=== PATIENT | female | born 1955 | race Caucasian/White ===

== ENCOUNTER → 2017-02-20 | Outpatient (CLI) | payer BC ==
[~2017-02-20] MED LIST: BROM0.07 OPR; IBUP-103 PO; MAGN400T6 PO; METH500T37 PO; MULT-506 PO; PRED1SUS3 OPR
== END | disposition home or self-care (01) ==
LOC: C.PAPS 09:23
PROVIDERS: ATTEND Obstetrics & Gynecology
DX: Z01.419 Encounter for gynecological examination (general) (routine) without abnormal findings (principal); Z87.42 Personal history of other diseases of the female genital tract; Z78.0 Asymptomatic menopausal state

== ENCOUNTER → 2017-03-20 | Outpatient (CLI) | payer BC ==
--- NOTE | 2017-03-20 15:54 | MAMMOGRAPHY REPORT ---
BILATERAL DIGITAL SCREENING MAMMOGRAM WITH CAD: 03/20/2017 CLINICAL HISTORY: Patient presents for routine screening. S/P bilateral augmentation. TECHNIQUE: Current study was also evaluated with a Computer Aided Detection (CAD) system. Bilatera l CC and MLO views including implant displaced views were obtained. COMPARISON: Comparison is made to exams dated: 07/20/2013 mammogram, 12/12/2009 mammogram - [facility], and 10/08/2007. BREAST COMPOSITION: There are scattered areas of fibroglandular density in both breasts. FINDINGS: No suspicious masses, calcifications, or areas of architectural distortion are noted in e ither breast. There has been no significant interval change compared to prior exams. Bilateral subp ectoral silicone implants are stable in appearance. IMPRESSION: ACR BI-RADS CATEGORY 2: BENIGN There is no mammographic evidence of malignancy. A 1 year screening mammogram is recommended. The p atient will receive written notification of the results. Approximately 10% of breast cancers are not detected with mammography. A negative mammographic repor t should not delay biopsy if a clinically suggestive mass is present. Kelley Islas M.D. ah/:03/20/2017 15:20:59 Pail Tester: Sheyla Baer RT(R)(M), [facility] letter sent: Normal 1/2 BI-RADS Code: ACR BI-RADS Category 2: Benign
== END | disposition home or self-care (01) ==
LOC: C.MAMM 12:48
PROVIDERS: ATTEND Obstetrics & Gynecology
DX: Z12.31 Encounter for screening mammogram for malignant neoplasm of breast (principal); Z98.82 Breast implant status

== ENCOUNTER 2017-06-17 14:20 | Emergency (ER) | payer BC ==
[~2017-06-17] VITALS: Ht 170.2 cm; Wt 62.9 kg
[~2017-06-17 14:20] MED LIST changes: -IBUP-103 PO
[2017-06-17 14:24] VITALS: TEMP 36.4; Ht 170.2 cm; Wt 62.9 kg
[2017-06-17] MEDS ORDERED: CYCLOBENZAPRINE HCL 5 MG TAB PO STA (14:38)
--- NOTE | 2017-06-17 15:04 | DIAGNOSTIC IMAGING REPORT ---
CERVICAL SPINE 3 VIEWS CLINICAL HISTORY: Neck pain. FINDINGS: AP, lateral, and odontoid views of the cervical spine are correlated with MRI of the cervical spine dated 09/16/2014. The skeletal structures are osteopenic. There is no radiographic evidence of fracture or malalignment. Vertebral body height and alignment are maintained throughout the cervical spine. There is straightening of the cervical lordosis. There is complete fusion of the C5 and C6 vertebral bodies. The spinolaminar line is maintained. The odontoid process and lateral masses appear intact on the open-mouth view. Productive degenerative change is seen at the atlantodental articulation. Small anterior osteophytes are seen throughout. Moderate disc space narrowing is seen at C3-C4 and C4-C5. Mild disc space narrowing seen at C6-C7. A posterior disc osteophyte complex at C4-C5 may contribute to acquired compromise of the central canal. The prevertebral soft tissues are within normal limits. Partially imaged apical lung parenchyma appears clear. IMPRESSION: 1. No acute bony abnormality is seen involving the cervical spine. 2. Osteopenia and degenerative change as above. 3. There is complete bony fusion of C5 and C6, similar to prior studies. Electronically signed by: Sixto Botello M.D. 06/17/2017 3:02 PM Dictated Date/Time: 06/17/2017 3:00 PM
[2017-06-17 15:37] VITALS: BP 106/72; PULSE 67; O2SAT 100
[2017-06-17] MEDS ORDERED: IBUP-103 PO (15:37)
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
== END 2017-06-17 15:37 | disposition home or self-care (01) ==
LOC: C.EDB 14:21 → C.EDD 15:37
DX: M54.2 Cervicalgia (principal); M62.838 Other muscle spasm; Z98.1 Arthrodesis status; R20.0 Anesthesia of skin; R20.2 Paresthesia of skin

== ENCOUNTER → 2018-01-09 | Outpatient (CLI) | payer BC, OTHER ==
[~2018-01-09] MED LIST changes: -BROM0.07 OPR; +IBUP-103 PO; -MAGN400T6 PO; -MULT-506 PO; -PRED1SUS3 OPR
--- NOTE | 2018-01-09 09:13 | DIAGNOSTIC IMAGING REPORT ---
R SHOULDER MIN 2 VIEWS CLINICAL HISTORY: RIGHT SHOULDER PAIN pain COMPARISON: None. DISCUSSION: The bones and joint spaces appear intact. There is no evidence of fracture, dislocation or bony disease. There is no evidence for soft tissue swelling. Mild degenerative change right acromioclavicular joint IMPRESSION: Mild degenerative change right acromioclavicular joint. Otherwise negative study. The above report was generated using voice recognition software. It may contain grammatical, syntax or spelling errors. Electronically signed by: Sathish Mcgraw M.D. 01/09/2018 9:11 AM Dictated Date/Time: 01/09/2018 9:11 AM
== END | disposition home or self-care (01) ==
LOC: C.RDSM 08:00
PROVIDERS: ATTEND Physician Assistant
DX: M25.511 Pain in right shoulder (principal)

== ENCOUNTER → 2018-02-05 | Outpatient (CLI) | payer OTHER ==
--- NOTE | 2018-02-05 15:40 | DIAGNOSTIC IMAGING REPORT ---
R HAND MIN 3 VIEWS CLINICAL HISTORY: RIGHT HAND PAIN COMPARISON: None. DISCUSSION: No acute fractures are visualized. There are moderate arthritic changes within the wrist with narrowing of the scapholunate cuneiform articulation and first carpometacarpal joint. There is a corticated density adjacent to the ulnar styloid which is felt to be old. There are no erosive changes. The bones are mildly osteopenic. There are osteoarthritic changes at the level of the second and third metacarpal phalangeal joints. IMPRESSION: 1. Mild osteopenia 2. Arthritic changes most pronounced within the wrist, and second and third metacarpal phalangeal joints. 3. No acute fractures Electronically signed by: Ace Ojeda M.D. 02/05/2018 3:39 PM Dictated Date/Time: 02/05/2018 3:37 PM
== END | disposition home or self-care (01) ==
LOC: C.RDSM 15:27
PROVIDERS: ATTEND Physician Assistant
DX: R52 Pain, unspecified (principal)

== ENCOUNTER → 2018-06-12 | Outpatient (CLI) | payer OTHER ==
[~2018-06-12] MED LIST changes: +METH-445 PO; -METH500T37 PO
--- NOTE | 2018-06-12 15:08 | DIAGNOSTIC IMAGING REPORT ---
CERVICAL WITHOUT CONTRAST CLINICAL HISTORY: 63 years-old Female presenting with NECK PAIN, CERVICAL RADICULOPATHY. TECHNIQUE: Multisequence, multiplanar MR imaging of the cervical spine was performed without the use of intravenous contrast. IV contrast: None. COMPARISON: 09/16/2014, radiograph from 06/17/2017 and additional priors dating back to 2004. FINDINGS: Localizer images: Unremarkable. Slight straightening of normal cervical lordosis. 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 Remaining vertebral bodies demonstrate normal height, alignment, and bone marrow signal intensity. Diffuse intervertebral disc desiccation without significant height loss. Multilevel degenerative changes further detailed below: C2-3: No significant spinal canal or neural foraminal narrowing. C3-4: Minimal disc osteophyte complex without significant neural foraminal or spinal canal narrowing. C4-5: Disc osteophyte complex/uncovertebral hypertrophy results in mild effacement of the ventral thecal sac without deformation of the spinal cord. Mild bilateral neural foraminal narrowing. C5-6: No significant neural foraminal or spinal canal narrowing. C6-7: Uncovertebral hypertrophy on the right results in right neural foraminal narrowing. No significant spinal canal narrowing. C7-T1: No significant spinal canal or neural foraminal narrowing. Cervical spinal cord normal in morphology and signal intensity. Paraspinal musculature within normal limits. No gross evidence of an epidural collection. IMPRESSION: 1. Multilevel degenerative changes with segmentation normally at C5-6. Mild neural foraminal narrowing bilaterally at C4-5 and on the right at C6-7. No evidence of spinal cord impingement. Findings are similar prior exam. Electronically signed by: Bill Harmon M.D. 06/12/2018 3:07 PM Dictated Date/Time: 06/12/2018 2:58 PM
== END | disposition home or self-care (01) ==
LOC: C.MRI 13:34
PROVIDERS: ATTEND Orthopaedic Surgery
DX: M54.12 Radiculopathy, cervical region (principal)

== ENCOUNTER 2020-05-22 10:38 | Inpatient (IN) ==
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
[~2020-05-22 10:38] MED LIST changes: +ACETAMINOPHEN 500 MG TAB PO SCH; +BUPIVACAINE 0.5 % 5 MG/1 ML PF 10ML VIAL ONE; +CEFAZOLIN 1000MG 1,000 MG/7.5 ML SYR IV SCH; +CeleBREX 200 MG CAP PO SCH; +FAMOTIDINE 20 MG TAB PO SCH; +GABAPENTIN 600 MG DOSE PO SCH; -IBUP-103 PO; +LR 15ML/HR IV SCH; -METH-445 PO; +METOCLOPRAMIDE HCL 10 MG TABLET PO SCH; +ROPIVACAINE 0.5% 5 MG/ML 30 ML VIAL ONE; +dexAMETHasone 4 MG TAB PO SCH
[2020-05-22] MEDS ORDERED: fentaNYL citrate 100 MCG/2 ML VIAL ONE (11:51)
[2020-05-22] MEDS ORDERED: MIDAZOLAM HCL 1 MG/ML 2ML VIAL ONE (11:51)
[2020-05-22] MEDS ORDERED: GLYCOPYRROLATE 0.2 MG/ML VIAL ONE ×2 (11:51→16:15)
[2020-05-22] MEDS ORDERED: NEOSTIGMINE METHYLSULFATE 5 MG/5 ML SYR ONE (11:51)
[2020-05-22] MEDS ORDERED: DEXAMETHASONE SOD INJ 4 MG/ML VIAL ONE (11:51)
[2020-05-22] MEDS ORDERED: ROCURONIUM BROMIDE 10 MG/ML 5 ML VIAL IV ONE (11:51)
[2020-05-22] MEDS ORDERED: ONDANSETRON INJ 2 MG/ML 2 ML VIAL ONE (11:51)
[2020-05-22] MEDS ORDERED: PROPOFOL IV EMULSION 10 MG/ML 20 ML VIAL IV ONE (11:51)
[2020-05-22] MEDS ORDERED: ATROPINE SULFATE 0.1 MG/ML 10ML SYR IV PRN (12:39)
[2020-05-22] MEDS ORDERED: ONDANSETRON INJ 2 MG/ML 2 ML VIAL IV PRN (12:39)
[2020-05-22] MEDS ORDERED: HYDROmorphone INJ 1 MG/ML SYRINGE IV PRN (12:39)
[2020-05-22] MEDS ORDERED: KETOROLAC 30 MG/ML VIAL IV PRN (12:39)
--- NOTE | 2020-05-22 13:54 | History & Physical Bridge Note ---
Date of Service May 22, 2020 History & Physical Bridge Note I have examined the patient, reviewed the History & Physical and in the interval since the performance of the History & Physical I have noted the following changes of clinical significance: no changes noted
[2020-05-22] MEDS ORDERED: BACITRACIN INJ 50,000 UNIT VIAL ONE (13:59)
[2020-05-22] MEDS ORDERED: ePHEDrine sulfate 50 MG/ML SYR ONE (14:54)
[2020-05-22] MEDS ORDERED: LIDOCAINE HCL 2% 2 ML VIAL/AMP(20MG/ML) INFIL ONE (14:59)
[2020-05-22] MEDS ORDERED: LARYING-O-JET KIT (LTA) ONE (14:59)
--- NOTE | 2020-05-22 15:24 | Electrocardiogram Report ---
Test Reason : Blood Pressure : / mmHG Vent. Rate : 064 BPM Atrial Rate : 064 BPM P-R Int : 144 ms QRS Dur : 082 ms QT Int : 424 ms P-R-T Axes : 079 091 086 degrees QTc Int : 437 ms Normal sinus rhythm Rightward axis Septal infarct (cited on or before 16-FEB-2019) Abnormal ECG When compared with ECG of 16-FEB-2019 15:06, Premature ventricular complexes are no longer Present Confirmed by Alberto Crow ([id number]) on 05/22/2020 3:23:40 PM Referred By: Yang Knox Confirmed By:Alberto Crow
[2020-05-22] MEDS ORDERED: PHENYLEPHRINE 100MCG/ML 5ML SYR ONE (15:37)
--- NOTE | 2020-05-22 17:08 | Operative Report ---
Post Operative Report Pre & Post Diagnosis Operation Date: 05/22/20 12:30 Pre-Op Diagnosis: Right shoulder glenohumeral osteoarthritis, rotator cuff tear arthropathy, failed rotator cuff repair, prior long head biceps rupture or tenotomy Post-Op Diagnosis: Same with grade 4 osteoarthritis glenohumeral joint and retained hardware (suture anchors ) I identified the patient and participated in the time-out.: Yes Procedure Operation Date: 05/22/20 12:30 Actual Procedures p Right Reversed Total Shoulder Arthroplasty(Right), removal hardware(suture anchors and suture material)- Yang Knox MD Surgeon Yang Knox MD Gas Appliance Installer YANELIS Flores Estimated Blood Loss 75 Findings Consistent with Post-Op Diagnosis Specimens Humeral head and suture anchors Drains 2 Hemovac Anesthesia Type General Regional Complications none Disposition Accompanied Patient To Recovery: No Disposition: Recovery Room Indications 65-year-old female with chronic right shoulder pain status post failed rotator cuff repair with progressive glenohumeral osteoarthritis superior migration humerus and rotator cuff arthropathy. Patient is now on chronic narcotics due to severe pain. Radiographs demonstrate previous decompression procedure now with proximal migration of the humerus narrowing of the superior glenohumeral joint space. Description of Procedure The patient was taken to the operating room and anesthetized under regional block and general anesthetic. The patient was positioned on the operating table in a 30 beachchair position with a towel roll under the medial border of the right scapula. The arm was draped free to be able to manipulate the shoulder as needed. The right upper extremity was prepped and draped in usual sterile fashion. Exam demonstrated previous scars well-healed from rotator cuff surgery. Limited range of motion and glenohumeral crepitation. Forward elevation 120 degrees, abduction 80 degrees, external rotation 35 degrees, internal rotation 40 degrees. An anterior deltopectoral approach was performed. A longitudinal incision was made in the deltopectoral interval. The skin was incised sharply. Subcutaneous flaps were elevated off the fascia. The cephalic vein was dissected out and retracted lateral with the deltoid. The clavipectoral fascia was divided at the lateral margin of the conjoined tendon and extended up to the CA ligament. The following findings were noted: The subscapularis tendon was intact. There was chronic subacromial bursitis with joint fluid extending into the subacromial space via a large rotator cuff tear of the supraspinatus. Some of the infraspinatus was still intact as well as teres minor. Biceps tendon was ruptured and retracted and scarred tendon sheath was in the groove.. The upper centimeter of the pectoralis was released for inferior exposure. The scar biceps tendon sheath was resected. The subscapularis tendon was taken down off the lesser tuberosity using a subperiosteal dissection. A #1 Vicryl traction suture was placed into the free end of the subscapularis tendon and capsule. The subscapular muscle fibers were split longitudinally at the level of the circumflex vessels. The circumflex vessels were identified and tied off with silk ties and divided laterally. A Kitner elevator was used to free up the inferior fibers of the subscapularis off of the capsule. The axillary nerve was identified with a tug test and protected with a blunt Leticia retractor between the nerve and the capsule. The subscapularis tendon was then taken down off of the lesser tuberosity subperiosteally and subperiosteal dissection was performed along the neck of the humerus as the arm is gradually externally rotated expos ing the humeral head. The humeral head findings demonstrated small inferior humeral osteophytes from anterior to posterior. The superior humeral head was down to grade 4 osteoarthritis with flattening of the humeral head.. retractors were readjusted and the inferior osteophytes were all resected using a small rongeur. A Cortez elevator was used to assist in releasing the capsule of the neck of the humerus. The capsule was divided with Poon scissors down to the glenoid released off the anterior glenoid and the rotator interval was released to meet the capsular release and a 360 release of the subscapularis was accomplished. A Fukuda retractor was placed into the joint retracting the humeral head posterior. Glenoid findings demonstrated the superior 1/3-1/2 of the glenoid was exposed eburnated bone with moderately arthritic intact articular cartilage in the inferior aspect of the glenoid.. The labrum was resected. an anterior-inferior and posterior inferior capsular release were performed with electrocautery and a Cortez elevator on bone with the axillary nerve protected inferiorly by the retractor. Attention was then taken to the humeral preparation. The cutting guide was placed into the humeral head. It was positioned at 20 of retroversion. Oscillating saw was used to resect the humeral head giving the cut above the level of the posterior rotator cuff insertion site. The humerus was then prepared for the stem. First had to remove the suture anchors to allow instrumentation in the canal. There were Helicoil anchors old suture material and footprint type anchors which were all peek material. The helicoil anchors were fragile and removed with a rongeur piecemeal. The footprint anchors were removed and all suture material in the bone was removed. The infraspinatus was left intact. The attachment was not compromised. I used the ascend flex stem from [email or web address]. The sizing broaches were used followed by trial broaches up to a size 4B long which had the ap propriate fit and fill. The appropriate sized cut protector was placed. The humerus was then retracted posterior to the glenoid. The glenoid was sized for a 25 baseplate standard post. The guide for the baseplate was positioned in a 10 inferior tilt and the central drill hole was made. The reamer for the 25 baseplate was used. The central drill was widened for the peg. The 25 baseplate was impacted into position. The base plate was transfixed with superior and inferior locking screws and anterior and posterior compression screws with stable fixation. The fan reamer was used for the 36 millimeter glenoid sphere. After irrigation the 36 standard centered glenoid sphere was impacted onto the baseplate and the screw was tightened. Attention was taken back to the humerus. The cut protector was removed and the plus or high offset humeral tray trial was assembled to the trial stem rotated appropriately to get bony coverage and then screwed in position. A trial reduction was performed. A +6,36 mm trial insert demonstrated good stability and no shuck. The trials were removed. 3 drill holes are made into the harder bone in the bicipital groove area and 3 #5 FiberWire sutures were placed transosseously. The canal was irrigated with antibiotic solution with bacitracin. The final component was assembled. The final component was 4B long PTC ascend flex stem with high off set reversed tray +0 and 36+6 reversed polyethylene insert. This was then impacted into the humerus with a tight press-fit. It was reduced to the glenoid sphere. Stability was verified. Subscapularis was repaired with the #5 FiberWire sutures using Bebo-Michael suture technique. Lateral row soft tissue repair was performed with #2 FiberWire [id number] sutures. The pectoralis was repaired with #2 FiberWire [id number] sutures. The arm was taken through a range of motion which demonstrated 140 degrees forward elevation 100 degrees abduction 50 degrees external rotation 70 degrees internal rotation. The implant was stable through the range of motion tested. The wound was copiously irrigated. 2 Hemovac drains were placed. The deltopectoral interval was closed with crqgnw-zq-venbo #1 Vicryl sutures. The subcutaneous tissues were closed with 2-0 Vicryl sutures. The skin was closed with allen. Sterile dressings were applied and a shoulder immobilizer. YANELIS Flores my physician entry level assistant manager assisted in the procedure to the entire procedure including patient positioning arm positioning prepping and draping soft tissue retraction instrument management suture management and performed the subcutaneous and skin closure and will participate in the postoperative care of the patient. I attest to the content of the Intraoperative Record and any orders documented therein. Any exceptions are noted below.
--- NOTE | 2020-05-22 17:46 | XRay Report ---
RIGHT SHOULDER 2 VIEWS CLINICAL HISTORY: Postoperative examination. FINDINGS: 2 portable views of the right shoulder are obtained. The skeletal structures are osteopenic . A right shoulder arthroplasty is in near-anatomic alignment. No acute fracture is seen. Productive change is noted at the acromioclavicular joint. Skin clips, a surgical drain, soft tissue swelling, a nd subcutaneous gas are expected postoperative findings. The visualized right lung parenchyma appears clear. IMPRESSION: Expected postoperative findings status post right shoulder arthroplasty. No acute fractur e is seen. Electronically signed by: Sixto Botello M.D. 05/22/2020 5:44 PM
[2020-05-22] MEDS ORDERED: SODIUM CHLORIDE 0.9% 1000ML 1,000 ML IV SCH (18:20)
[2020-05-22] MEDS ORDERED: MAGNESIUM HYDROXIDE SUSP 30 ML UDC PO PRN (18:20)
[2020-05-22] MEDS ORDERED: bisacodyL 10 MG SUPP PR PRN (18:20)
[2020-05-22] MEDS ORDERED: NALOXONE HCL 0.4 MG/1 ML VIAL/CARP IV PRN (18:20)
[2020-05-22] MEDS ORDERED: HYDROmorphone INJ 0.5 MG/0.5 ML SYR IV PRN (18:20)
[2020-05-22] MEDS ORDERED: MEDICAL MARIJUANA INH PRN (18:23)
[2020-05-22] MEDS: OXYCODONE HCL IR 5 MG TAB (IMMEDIATE RELEASE) PO PRN (18:36)
--- NOTE | 2020-05-22 18:36 | Anesthesiology Progress Note ---
Date of Service May 22, 2020 Anesthesia Post Procedure Vital Signs Vital Signs: Temp Pulse Pulse Resp BP Pulse Ox 05/22/20 18:29 36.7 C 66 17 112/68 94 05/22/20 18:00 36.6 C 80 16 114/73 96 05/22/20 17:45 73 16 123/68 94 05/22/20 17:30 36.3 C L 73 15 119/70 95 05/22/20 17:20 81 16 117/70 96 05/22/20 17:10 82 15 123/74 99 05/22/20 17:02 36.3 C L 84 16 118/68 100 05/22/20 12:15 36.9 C 58 L 18 132/73 98 05/22/20 11:24 37 C 64 20 121/74 96 Pain Intensity Right Arm: Pain Intensity: 6 Transfer of Care Handoff Completed per policy Notes Mental Status: alert / awake / arousable and participated in evaluation Patient Amnestic to Procedure: Yes Nausea / Vomiting: adequately controlled Pain: adequately controlled Airway Patency, RR, SpO2: stable & adequate BP & HR: stable & adequate Hydration State: stable & adequate Anesthetic Complications: no major complications apparent and Pt Satisfied with anesthetic care Notes: Block is functioning well.
[2020-05-22] MEDS: CEFAZOLIN 1000MG 1,000 MG/7.5 ML SYR IV SCH (21:57)
[2020-05-22] MEDS: ACETAMINOPHEN 500 MG TAB PO SCH (21:58)
[2020-05-22] MEDS: DOCUSATE SODIUM 100 MG CAP PO SCH (21:58)
[2020-05-22] MEDS: SENNA 8.6 MG TAB PO SCH (21:58)
[2020-05-23] MEDS: OXYCODONE HCL IR 5 MG TAB (IMMEDIATE RELEASE) PO PRN ×5 (02:11→23:54)
[2020-05-23] MEDS: CEFAZOLIN 1000MG 1,000 MG/7.5 ML SYR IV SCH (06:31)
[2020-05-23] MEDS: ACETAMINOPHEN 500 MG TAB PO SCH ×3 (06:31→21:00)
[2020-05-23 07:15] LABS: Basophils # (auto) 0.01 K/uL (0-0.2); Basophils % (auto) 0.1 %; Hematocrit (blood only) 33.9 % (37-47); Hemoglobin 11.3 g/dL (12.0-16.0); Immature Granulocytes # (auto) 0.02 K/uL (0.00-0.02); Immature Granulocytes % (auto) 0.2 %; Lymphocytes # (auto) 1.63 K/uL (1.2-3.4); Lymphocytes % (auto) 14.7 %; Mean Corpuscular Hemoglobin 30.5 pg (25-34); Mean Corpuscular Hgb Conc 33.3 g/dL (32-36); Mean Corpuscular Volume 91.4 fL (80-100); Mean Platelet Volume 9.8 fL (7.4-10.4); Monocytes # (auto) 0.85 K/uL (0.11-0.59); Monocytes % (auto) 7.7 %; Neutrophils # (auto) 8.59 K/uL (1.4-6.5); Neutrophils % (auto) 77.3 %; Platelet Count 247 K/uL (130-400); RDW Coefficient of Variation 14.1 % (11.5-14.5); RDW Standard Deviation 46.8 fL (36.4-46.3); Red Blood Count 3.71 M/uL (4.2-5.4)
[2020-05-23 07:43] LABS: BUN Creatinine Ratio 10.2 (10-20); Est GFR (African American) 67.7; Est GFR (Non-African American) 58.4; Potassium 3.6 mmol/L (3.5-5.1)
--- NOTE | 2020-05-23 08:10 | Anesthesiology Progress Note ---
Date of Service May 23, 2020 Anesthesia Post Procedure Vital Signs Vital Signs: Temp Pulse Pulse Resp BP Pulse Ox 05/23/20 07:24 36.9 C 61 18 99/58 L 98 05/23/20 02:51 36.9 C 51 L 16 109/65 97 05/22/20 23:18 36.3 C L 61 16 97/56 L 96 05/22/20 22:08 36.8 C 68 16 112/64 95 05/22/20 20:00 36.4 C L 71 16 112/64 96 05/22/20 19:09 36.8 C 76 16 106/66 94 05/22/20 18:29 36.7 C 66 17 112/68 94 05/22/20 18:00 36.6 C 80 16 114/73 96 05/22/20 17:45 73 16 123/68 94 05/22/20 17:30 36.3 C L 73 15 119/70 95 05/22/20 17:20 81 16 117/70 96 05/22/20 17:10 82 15 123/74 99 05/22/20 17:02 36.3 C L 84 16 118/68 100 05/22/20 12:15 36.9 C 58 L 18 132/73 98 05/22/20 11:24 37 C 64 20 121/74 96 Pain Intensity Right Arm: Pain Intensity: 6 Notes Mental Status: alert / awake / arousable and participated in evaluation Nausea / Vomiting: adequately controlled Pain: adequately controlled Airway Patency, RR, SpO2: stable & adequate BP & HR: stable & adequate Hydration State: stable & adequate Anesthetic Complications: no major complications apparent
--- NOTE | 2020-05-23 08:23 | Orthopedic Progress Note ---
Date of Service May 23, 2020 Assessment & Plan (1) Right rotator cuff tear arthropathy: POD #1, Right [place] TSA PT/ OT DVT proph- ASA D/C planning- Home w HEP. Will add Am and PM dosing for medical marijuana. Admission and Anticipated Discharge Date Admission Date: May 22, 2020 Subjective POD#1 Pain is main issue, uses medical marijuana and explained more in detail her dosing. Oxycodone, dilaudid and tylenol on board. Denies SOB, CP, N/V. Physical Exam Physical Exam: Right shoulder dressings c/d/i, no drainage. Fingers/ wrist mobile. Sling in tact. A&Ox3. Results & Data ([facility]) Vital Signs (Past 12 Hours) Vital Signs Temp Pulse Resp BP Pulse Ox 05/23/20 07:24 36.9 C 61 18 99/58 L 98 05/23/20 02:51 36.9 C 51 L 16 109/65 97 05/22/20 23:18 36.3 C L 61 16 97/56 L 96 05/22/20 22:08 36.8 C 68 16 112/64 95
[2020-05-23] MEDS: ASPIRIN 81 MG ECTAB PO SCH (08:46)
[2020-05-23] MEDS: MAGNESIUM OXIDE 400 MG TAB PO SCH (08:47)
[2020-05-23] MEDS: ESCITALOPRAM OXALATE 10 MG TAB PO SCH (08:47)
[2020-05-23] MEDS: CYANOCOBALAMIN 500 MCG TABLET (VITAMIN B-12) PO SCH (08:47)
[2020-05-23] MEDS: CHOLECALCIFEROL 1,000 UNITS 25 MCG TAB PO SCH (08:47)
[2020-05-23] MEDS: MULTIVITAMIN TAB PO SCH (08:47)
[2020-05-23] MEDS: DOCUSATE SODIUM 100 MG CAP PO SCH ×2 (08:47→20:16)
[2020-05-23] MEDS ORDERED: NON-FORMULARY MEDICATION (Multivitamin 1 CAP) PO SCH (09:00)
[2020-05-23] MEDS ORDERED: LACTATED RINGER'S 1,000 ML IV SCH (09:45)
[2020-05-23] MEDS ORDERED: ONDANSETRON INJ 2 MG/ML 2 ML VIAL IV PRN (09:48)
--- NOTE | 2020-05-23 12:31 | Hospitalist Consultation ---
Date of Consultation May 23, 2020 Assessment & Plan (1) Right rotator cuff tear arthropathy: S/p right reversed total shoulder arthroplasty 05/22 Monitor for acute blood loss DVT proph, pain control per primary (2) Fibromyalgia: Patient takes medical marijuana for this, would hold for now while receiving narcotics for pain control (3) Nausea: Secondary to narcotics and pain. Will give Zofran 4mg q4h prn (4) Hypotension: Mild but with lightheadedness, likely secondary to dilaudid administration Gave LR @ 250 mls x 1L Pressures are wnl this afternoon Thank you for involving us in the care of this patient. Medicine will sign off at this time. Supervising Physician Co-Signing Physician Notes I supervised Iliana Wilde NP on this patient's care. I examined the patient today independently of her. I discussed the plan of care with her with the plan being as written in her note except for any following changes/exceptions: None. In significant pain this afternoon when seen. In the right shoulder and going down the elbow. Discussed that it's not a big deal to use pain meds this closely after surgery. History of Present Illness Attending Physician: Yang Knox MD History of Present Illness Ms. Nicholas is a bit lightheaded after receiving dilaudid. Her blood pressures have been running a bit hypotensive this morning. She is also painful in her shoulder and nauseas. Allergies Allergy/AdvReac Type Severity Reaction Status Date / Time No Known Allergies Allergy Verified 05/22/20 11:19 Home Medications Home Medications Medication Instructions Recorded Confirmed Type Medical Marijuana 1 dose UD PRN 01/04/20 05/22/20 History cholecalciferol (vitamin D3) 25 mcg PO QAM 01/04/20 05/22/20 History [Vitamin D3] cyanocobalamin (vitamin B-12) 500 mcg PO QAM 01/04/20 05/22/20 History [Vitamin B-12] txivfwfeugp-kfd-blrmdwbii-vitC 2 cap PO QAM 01/04/20 05/22/20 History [Glucosamine Complex-MSM] magnesium 500 mg PO QAM 01/04/20 05/22/20 History multivitamin 1 cap PO QAM 01/04/20 05/22/20 History oxycodone-acetaminophen [Percocet] 1 tab PO UD PRN 01/04/20 05/22/20 History celecoxib [Celebrex] 200 mg PO QAM 05/11/20 05/22/20 History escitalopram oxalate [Lexapro] 10 mg PO DAILY 05/22/20 05/22/20 History Patient History Family History Mother Family history of diabetes mellitus Uncle Family history of esophageal cancer Social History Smoking Status: Former smoker Smoking End Date: 1995; Second Hand Exposure: No; Do You Dip or Chew Tobacco: No; Tobacco Cessation Education Requested by Patient: No Hx Alcohol Use: No Hx Substance Use: Yes Substance Use Type Other:: medical marijuana Preferred Language: [place] Communication Ability: Effective Register Of Wills Required: No Beliefs That Will Affect Care: None marital status: Current Living Situation: Spouse Other Information That Helps Us Care for You: No Feels Safe at Home: Yes Safety Concerns: Feels Safe At This Time Review of Systems Constitutional: + sweats; no fever and no body aches Respiratory: no cough, no dyspnea and no wheezing Cardiovascular: + lightheadedness; no chest pain and no palpitations Gastrointestinal: + nausea; no abdominal pain and no vomiting Genitourinary: no dysuria and no urinary hesitancy Musculoskeletal: as per Subjective / HPI Integumentary: no rash Results & Data Results & Data ([facility]) Vital Signs (Past 12 Hours) Vital Signs Temp Pulse Resp BP Pulse Ox 05/23/20 12:11 36.8 C 63 14 114/71 98 05/23/20 07:24 36.9 C 61 18 99/58 L 98 05/23/20 02:51 36.9 C 51 L 16 109/65 97 PG Care Time/CCT Total # of Minutes Spent Total Time Spent with Patient: Total time spent is greater than 50% in coordination of care (as documented) at patient's floor/unit and/or counseling patient: Coding Level of Care Code 50757 Inpt Consult Level 3 Diagnoses Right rotator cuff tear arthropathy M75.101; M12.811 Fibromyalgia M79.7 Nausea R11.0 Hypotension I95.9
[2020-05-23] MEDS ORDERED: MIRTAZAPINE TAB 15 MG TAB PO ONE (19:44)
[2020-05-23] MEDS ORDERED: KETOROLAC TROMETHAMINE 15 MG/ML VIAL IV ONE (19:44)
[2020-05-23] MEDS: SENNA 8.6 MG TAB PO SCH (20:16)
[2020-05-23] MEDS ORDERED: KETOROLAC TROMETHAMINE 15 MG/ML VIAL IV PRN (21:14)
[2020-05-23] MEDS ORDERED: MIRTAZAPINE TAB 15 MG TAB PO PRN (21:15)
[2020-05-24] MEDS: ACETAMINOPHEN 500 MG TAB PO SCH (05:50)
[2020-05-24 06:21] LABS: Basophils # (auto) 0.02 K/uL (0-0.2); Basophils % (auto) 0.2 %; Eosinophils # (auto) 0.09 K/uL (0-0.5); Eosinophils % (auto) 0.9 %; Hematocrit (blood only) 40.2 % (37-47); Hemoglobin 13.2 g/dL (12.0-16.0); Immature Granulocytes # (auto) 0.02 K/uL (0.00-0.02); Immature Granulocytes % (auto) 0.2 %; Lymphocytes # (auto) 1.62 K/uL (1.2-3.4); Lymphocytes % (auto) 15.7 %; Mean Corpuscular Hemoglobin 30.4 pg (25-34); Mean Corpuscular Hgb Conc 32.8 g/dL (32-36); Mean Corpuscular Volume 92.6 fL (80-100); Mean Platelet Volume 10.1 fL (7.4-10.4); Monocytes % (auto) 7.7 %; Neutrophils % (auto) 75.3 %; Platelet Count 274 K/uL (130-400); RDW Coefficient of Variation 14.5 % (11.5-14.5); RDW Standard Deviation 49.3 fL (36.4-46.3); Red Blood Count 4.34 M/uL (4.2-5.4); White Blood Count 10.35 K/uL (4.8-10.8)
[2020-05-24 06:57] LABS: BUN Creatinine Ratio 8.7 (10-20); Calcium 9.1 mg/dl (8.5-10.1); Creatinine Clr Calc Pharmacy 56.5 ml/min; Est GFR (African American) 74.7; Est GFR (Non-African American) 64.5; Potassium 3.8 mmol/L (3.5-5.1)
[2020-05-24] MEDS: CYANOCOBALAMIN 500 MCG TABLET (VITAMIN B-12) PO SCH (09:04)
[2020-05-24] MEDS: MAGNESIUM OXIDE 400 MG TAB PO SCH (09:04)
[2020-05-24] MEDS: CHOLECALCIFEROL 1,000 UNITS 25 MCG TAB PO SCH (09:04)
[2020-05-24] MEDS: DOCUSATE SODIUM 100 MG CAP PO SCH (09:04)
[2020-05-24] MEDS: MULTIVITAMIN TAB PO SCH (09:04)
[2020-05-24] MEDS: ASPIRIN 81 MG ECTAB PO SCH (09:04)
[2020-05-24] MEDS: ESCITALOPRAM OXALATE 10 MG TAB PO SCH (09:05)
[2020-05-24] MEDS: OXYCODONE HCL IR 5 MG TAB (IMMEDIATE RELEASE) PO PRN (09:06)
--- NOTE | 2020-05-24 09:10 | Orthopedic Progress Note ---
Date of Service May 24, 2020 Assessment & Plan (1) Right rotator cuff tear arthropathy: POD #2, Right [place] TSA PT/ OT DVT proph- ASA D/C planning- Home w HEP today Admission and Anticipated Discharge Date Admission Date: May 22, 2020 Subjective POD#2 Denies SOB, CP, N/V. Doing well Pain controlled well. Physical Exam Physical Exam: Right shoulder incision C/D/I, no erythema, no drainage. Fingers mobile. sling in tact. A&Ox3. Results & Data ([facility]) Vital Signs (Past 12 Hours) Vital Signs Temp Pulse Resp BP Pulse Ox 05/24/20 07:00 37.2 C 60 16 131/77 97 05/23/20 23:40 36.8 C 59 L 16 150/79 H 96
--- NOTE | 2020-06-07 14:52 | Discharge Summary (DS) ---
HISTORY OF PRESENT ILLNESS: This is a 65-year-old female patient of Dr. Knox's complaining of chronic right shoulder pain and weakness, longstanding, now progressively getting worse. The patient failed conservative treatment and wished to proceed with a right reverse total shoulder arthroplasty. PAST MEDICAL HISTORY: Anxiety, osteoarthritis, spine problems, neck problems, upper back problems, dental crowns. POSTOPERATIVE COURSE: The patient underwent a right reversed total shoulder arthroplasty on 05/22/2020. She was followed closely with medical consultation, DVT prophylaxis in the form of aspirin, physical therapy and pain control. The patient did well. She was discharged home on postoperative day 2. PHYSICAL EXAMINATION: On discharge, right shoulder incision was clean, dry and intact. [place] are intact. Skin edges were reapproximated well. There was no redness or drainage. Elbow, wrist and hand motion was intact. Neurologically and neurovascularly she is intact in her right upper extremity. DIAGNOSES: Right shoulder reverse total shoulder arthroplasty, anxiety, osteoarthritis, spine problems, neck problems, upper back problems, dental crowns. PLAN: The patient was discharged home with home exercise program. She will continue her preadmission medications with the addition of aspirin for DVT prophylaxis and pain medications as needed. She will follow up as scheduled as an outpatient with Dr. Knox.
== END 2020-05-24 12:42 | disposition home or self-care (01) | DRG 483 ==
LOC: ASU 10:38 → 3E 17:06